=== PATIENT | female | born 1995 | race Caucasian/White ===

== ENCOUNTER 2017-01-28 23:37 | Emergency (ER) | payer OTHER | END 2017-01-29 02:18 | disposition home or self-care (01) | LOC: FER 23:37 | DX: G43.909 Migraine, unspecified, not intractable, without status migrainosus (principal); Z79.899 Other long term (current) drug therapy | CPT/HCPCS: J1100; J1885; J2405 ==

== ENCOUNTER 2017-02-09 22:01 | Emergency (ER) | payer OTHER | END 2017-02-10 00:49 | disposition home or self-care (01) | LOC: FER 22:01 | DX: G43.909 Migraine, unspecified, not intractable, without status migrainosus (principal); J02.9 Acute pharyngitis, unspecified; F17.210 Nicotine dependence, cigarettes, uncomplicated | CPT/HCPCS: J1885; J2765 ==

== ENCOUNTER 2020-10-01 15:06 | Emergency (ER) | payer OTHER ==
[~2020-10-01 15:06] MED LIST: FAMCICLOVIR250 MG PO; MACROBID100 MG PO; MOTRIN600 MG PO; OXCARBAZEPINE300 MG PO; PHENERGAN12.5 M1 PO; PHENERGAN12.5 MG PR; PRENATAL FORMU1 EACH PO; VALTREX500 MG PO; ZANTAC150 MG PO
[2020-10-01 17:02] LABS: BASOPHIL 0.4 % (0-2); EOSINOPHIL 0.9 % (0-5); HCT 25.7 % (37.0-47.0); LYMPHOCYTE 34.5 % (15-48); MCH 28.8 pg (25.0-31.0); MCHC 31.1 g/dL (32.0-36.0); MCV 92.4 fL (78.0-100.0); MPV 10.6 fL (6.0-9.5); NEUTROPHIL 58.4 % (41-80); NRBC 0.5; PLT 236 K/uL (150-400); RBC 2.78 M/uL (4.20-5.40); WBC 7.8 K/uL (4.0-10.5)
[2020-10-01 17:25] LABS: BILIRUBIN NEGATIVE (NEGATIVE); BLOOD 3+ Ery/uL (NEGATIVE); COLOR YELLOW (YELLOW); GLUCOSE (U) NORMAL (NORMAL); LEUKOCYTES 2+ Leu/uL (NEGATIVE); NITRITE NEGATIVE (NEGATIVE); PROTEIN NEGATIVE (NEGATIVE); UROBILINOGEN 0.2 mg/dL (0.2-1.0)
[2020-10-01 17:28] LABS: ALBUMIN 2.5 g/dL (3.4-5.0); BILIRUBIN - TOTAL 0.2 mg/dL (0.2-1.0); BUN/CREAT RATIO (CALC) 13.2 RATIO; CREATININE 0.76 mg/dL (0.51-0.95); GLOBULIN (CALCULATION) 3.8 g/dL; POTASSIUM 3.1 mmol/L (3.5-5.1); TOTAL PROTEIN 6.3 g/dL (6.4-8.2); URIC ACID 6.1 mg/dL (2.6-6.2)
[2020-10-01 17:29] LABS: CLARITY SLIGHTLY HAZY (CLEAR)
[2020-10-01 17:32] LABS: BACTERIA 1+
== END 2020-10-01 19:28 | disposition home or self-care (01) ==
LOC: FER 15:06
PROVIDERS: Emergency Medicine
DX: H53.47 Heteronymous bilateral field defects (principal); D64.9 Anemia, unspecified; F43.0 Acute stress reaction; F17.210 Nicotine dependence, cigarettes, uncomplicated
CPT/HCPCS: 36415; 70450; 80053; 81001; 84550; 85025

== ENCOUNTER 2021-02-05 10:45 | Emergency (ER) | payer OTHER ==
[2021-02-05 11:51] LABS: BASOPHIL 0.3 % (0-2); EOSINOPHIL 0 % (0-5); HCT 39.9 % (37.0-47.0); HGB 12.8 g/dl (12.5-16.0); LYMPHOCYTE 22.5 % (15-48); MCH 27.1 pg (25.0-31.0); MCHC 32.1 g/dL (32.0-36.0); MCV 84.5 fL (78.0-100.0); MONOCYTE 12.7 % (0-12); MPV 11.1 fL (6.0-9.5); NEUTROPHIL 64.2 % (41-80); NRBC 0; PLT 128 K/uL (150-400); RBC 4.72 M/uL (4.20-5.40); RDW 17.2 % (11.5-14.0); WBC 3.5 K/uL (4.0-10.5)
[2021-02-05 12:08] LABS: BILIRUBIN NEGATIVE (NEGATIVE); BLOOD TRACE-INTACT Ery/uL (NEGATIVE); CLARITY CLEAR (CLEAR); COLOR YELLOW (YELLOW); GLUCOSE (U) NORMAL (NORMAL); LEUKOCYTES NEGATIVE Leu/uL (NEGATIVE); NITRITE NEGATIVE (NEGATIVE); PROTEIN NEGATIVE (NEGATIVE); UROBILINOGEN 0.2 mg/dL (0.2-1.0)
[2021-02-05 12:15] LABS: ALBUMIN 3.7 g/dL (3.4-5.0); BILIRUBIN - TOTAL 0.2 mg/dL (0.2-1.0); BUN/CREAT RATIO (CALC) 6.1 RATIO; CREATININE 0.66 mg/dL (0.51-0.95); GLOBULIN (CALCULATION) 3.1 g/dL; POTASSIUM 3.2 mmol/L (3.5-5.1); TOTAL PROTEIN 6.8 g/dL (6.4-8.2)
[2021-02-05 12:15] LABS: BACTERIA 1+
[2021-02-05 12:16] LABS: AMORPHOUS URATES CRYSTALS TRACE
[2021-02-05] MEDS ORDERED: METRONIDAZOLE500 MG PO (14:14)
[2021-02-05] MEDS ORDERED: CIPRO500 M1 PO (14:14)
== END 2021-02-05 15:00 | disposition home or self-care (01) ==
LOC: FER 10:45
PROVIDERS: Emergency Medicine
DX: K52.9 Noninfective gastroenteritis and colitis, unspecified (principal); N83.202 Unspecified ovarian cyst, left side
CPT/HCPCS: 36415; 80053; 81001; 85025; J1885; J7030; Q9967

== ENCOUNTER 2021-11-25 10:55 | Emergency (ER) | payer OTHER ==
[~2021-11-25 10:55] MED LIST changes: +CIPRO500 M1 PO; +METRONIDAZOLE500 MG PO
[2021-11-25 11:36] LABS: BILIRUBIN NEGATIVE (NEGATIVE); BLOOD 2+ Ery/uL (NEGATIVE); CLARITY CLEAR (CLEAR); COLOR YELLOW (YELLOW); GLUCOSE (U) NORMAL (NORMAL); LEUKOCYTES NEGATIVE Leu/uL (NEGATIVE); NITRITE NEGATIVE (NEGATIVE); PROTEIN TRACE (LOW) mg/dL (NEGATIVE); SPECIFIC GRAVITY >=1.030 (1.001-1.030); UROBILINOGEN 0.2 mg/dL (0.2-1.0)
[2021-11-25 11:40] LABS: BASOPHIL 0.8 % (0-2); EOSINOPHIL 0.9 % (0-5); HCT 38.5 % (37.0-47.0); HGB 12.5 g/dl (12.5-16.0); LYMPHOCYTE 32.1 % (15-48); MCH 28.1 pg (25.0-31.0); MCHC 32.5 g/dL (32.0-36.0); MCV 86.5 fL (78.0-100.0); MONOCYTE 6.5 % (0-12); MPV 10.4 fL (6.0-9.5); NEUTROPHIL 59.4 % (41-80); NRBC 0; PLT 240 K/uL (150-400); RBC 4.45 M/uL (4.20-5.40); RDW 14.6 % (11.5-14.0); WBC 6.6 K/uL (4.0-10.5)
[2021-11-25 11:57] LABS: ALBUMIN 4.2 g/dL (3.4-5.0); BILIRUBIN - TOTAL 0.5 mg/dL (0.2-1.0); BUN/CREAT RATIO (CALC) 10.3 RATIO; CREATININE 0.78 mg/dL (0.51-0.95); POTASSIUM 3.4 mmol/L (3.5-5.1); TOTAL PROTEIN 7.2 g/dL (6.4-8.2)
[2021-11-25] MEDS ORDERED: NAPROXEN500 MG PO (13:35)
[2021-11-25] MEDS ORDERED: NORCO 5-325 TA1 EACH PO (13:35)
== END 2021-11-25 14:04 | disposition home or self-care (01) ==
LOC: FER 10:55
PROVIDERS: Internal Medicine
DX: S00.83XA Contusion of other part of head, initial encounter (principal); S60.512A Abrasion of left hand, initial encounter; M25.511 Pain in right shoulder; F17.210 Nicotine dependence, cigarettes, uncomplicated; Z23 Encounter for immunization; V48.5XXA Car driver injured in noncollision transport accident in traffic accident, initial encounter
CPT/HCPCS: 36415; 70450; 70486; 71260; 72125; 72128; 72131; 80053; 81001; 85025; 90471; 90715; Q9967